=== PATIENT | male | born 1985 | race American Indian/Alaskan Native ===

== ENCOUNTER 2017-11-07 07:09 | Emergency (ER) | payer MEDICAID, OTHER ==
[2017-11-07 07:47] VITALS: RESP 18; TEMP 98.9
--- NOTE | 2017-11-07 08:02 | ED PDOC ---
Arrival/HPI - General Chief Complaint: Flu-like Symptoms Time Seen by Provider: 11/07/17 07:47 Historian: Patient - History of Present Illness Narrative History of Present Illness (Text): 11/07/17 07:50 Celeste Cruz is a 32 year old male, who presents to the emergency department complaining of chills and body aches since early this morning. Patient reports having a cough and sore throat and notes one week ago having a fever that resolved. Patient denies chest pain, shortness of breath, headache, vomiting, diarrhea, abdominal pain, dizziness or other complaints. PMD: Dr. Saul Time/Duration: Prior to Arrival Symptom Onset: Sudden Symptom Course: Unchanged Activities at Onset: Rest Context: Home Past Medical History - Provider Review Nursing Documentation Reviewed: Yes - Infectious Disease Hx of Infectious Diseases: None - Psychiatric Hx Bipolar Disorder: No Hx Substance Use: No Family/Social History - Physician Review Nursing Documentation Reviewed: Yes Family/Social History: Unknown Family HX Smoking Status: Unknown If Ever Smoked Hx Alcohol Use: Yes Frequency of alcohol use: Socially Hx Substance Use: No Allergies/Home Meds Allergies/Adverse Reactions: Allergies No Known Allergies Allergy (Verified 11/07/17 07:47) Review of Systems - Physician Review All systems were reviewed & negative as marked: Yes - Review of Systems Constitutional: Fevers (resolved), Other (chills) ENT: Sore Throat Respiratory: Cough. absent: SOB Cardiovascular: absent: Chest Pain Gastrointestinal: absent: Abdominal Pain Musculoskeletal: Myalgias Physical Exam Vital Signs Reviewed: Yes Vital Signs Temp Pulse Resp BP Pulse Ox 11/07/17 07:43 98.9 F 102 H 18 144/77 97 Temperature: Afebrile Blood Pressure: Normal Pulse: Tachycardic Respiratory Rate: Normal Appearance: Positive for: Well-Appearing, Non-Toxic, Comfortable Pain Distress: None Mental Status: Positive for: Alert and Oriented X 3 - Systems Exam Head: Present: Atraumatic, Normocephalic Pupils: Present: PERRL Extroacular Muscles: Present: EOMI Conjunctiva: Present: Normal Ears: Present: Normal, NORMAL TM, Normal Canal. No: Erythema, TM Bulging Mouth: Present: Moist Mucous Membranes Pharnyx: Present: ERYTHEMA. No: EXUDATE, TONSILS ENLARGED Neck: Present: Normal Range of Motion Respiratory/Chest: Present: Clear to Auscultation, Good Air Exchange. No: Respiratory Distress, Accessory Muscle Use, Wheezes, Rales, Retracting, Rhonchi Cardiovascular: Present: Regular Rate and Rhythm, Normal S1, S2. No: Murmurs Abdomen: Present: Normal Bowel Sounds. No: Tenderness, Distention, Peritoneal Signs, Rebound, Guarding Neurological: Present: GCS=15, CN II-XII Intact, Speech Normal Skin: Present: Warm, Dry, Normal Color. No: Rashes Psychiatric: Present: Alert, Oriented x 3, Normal Insight, Normal Concentration Medical Decision Making ED Course and Treatment: 11/07/17 Impression: 32 year old male with erythema in pharynx and no exudate complaining of sore throat, cough, and chills since [employer]. Plan: -- Chest X-ray -- Tylenol -- Labs -- Reassess and disposition Progress Notes: 11/07/17 09:00 Chest X-ray: Creator : Fausto Grossman MD FINDINGS: LUNGS: No active pulmonary disease. PLEURA: No significant pleural effusion identified. No pneumothorax apparent. CARDIOVASCULAR: Normal. OSSEOUS STRUCTURES: No significant abnormalities. VISUALIZED UPPER ABDOMEN: Normal. OTHER FINDINGS: None. IMPRESSION: No active disease. - Lab Interpretations Lab Results: Lab Results 11/07/17 08:13: Influenza Typ A,B (EIA) Negative for flu a/b, Grp A Beta Strep Ag Negative I have reviewed the lab results: Yes - RAD Interpretation Radiology Orders: 11/07/17 07:58 CHEST TWO VIEWS (PA/LAT) [RAD] Stat Tray Checker: Radiologist - Medication Orders Current Medication Orders: Discontinued Medications Acetaminophen (Tylenol 325mg Tab) 975 mg PO STAT STA Stop: 11/07/17 07:59 Last Admin: 11/07/17 08:13 Dose: 975 mg - Scribe Statement The provider has reviewed the documentation as recorded by the Ralph Archer Provider Scribe Attestation: All medical record entries made by the Scribe were at my direction and personally dictated by me. I have reviewed the chart and agree that the record accurately reflects my personal performance of the history, physical exam, medical decision making, and the department course for this patient. I have also personally directed, reviewed, and agree with the discharge instructions and disposition. Disposition/Present on Arrival - Present on Arrival Any Indicators Present on Arrival: No History of DVT/PE: No History of Uncontrolled Diabetes: No Urinary Catheter: No History of Decub. Ulcer: No History Surgical Site Infection Following: None - Disposition Have Diagnosis and Disposition been Completed?: Yes Diagnosis: Viral syndrome, Influenza-like illness Disposition: HOME/ ROUTINE Disposition Time: 08:00 Condition: STABLE Discharge Instructions (ExitCare): Viral Syndrome (ED) Additional Instructions: follow up with your doctor. return to er with worsening symptoms or concerns. Prescriptions: Oseltamivir Phosphate [Tamiflu] 75 mg PO BID #10 capsule Referrals: Nelly Saul MD [Primary Care Provider] - Follow up with primary Forms: [employer] (Khmer)
--- NOTE | 2017-11-07 08:48 | RAD ---
HISTORY: cough COMPARISON: No prior. TECHNIQUE: Chest PA and lateral FINDINGS: LUNGS: No active pulmonary disease. PLEURA: No significant pleural effusion identified. No pneumothorax apparent. CARDIOVASCULAR: Normal. OSSEOUS STRUCTURES: No significant abnormalities. VISUALIZED UPPER ABDOMEN: Normal. OTHER FINDINGS: None. IMPRESSION: No active disease.
[2017-11-07 09:00] LABS: INFLUENZA A B NEGATIVE FOR FLU A/B (NEGATIVE)
[2017-11-07 14:30] VITALS: BP 138/62; PULSE 98; O2SAT 100
== END 2017-11-07 09:20 | disposition home or self-care (01) ==
LOC: MERGE 07:09 → ED 07:09
DX: J11.1 Influenza due to unidentified influenza virus with other respiratory manifestations (principal); B34.9 Viral infection, unspecified

== ENCOUNTER 2018-04-17 21:27 | Emergency (ER) | payer SELFPAY ==
--- NOTE | 2018-04-17 22:45 | ED PDOC ---
Arrival/HPI <Elmo Contreras - Last Filed: 04/18/18 00:16> - General Historian: Patient EM Caveat: Acuity of Condition - History of Present Illness Time/Duration: 24 hours Symptom Onset: Sudden Symptom Course: Intermittent, [place] Quality: Aching, Stabbing Severity Level: 5 Activities at Onset: Rest Context: Home <Marita Sandoval - Last Filed: 04/18/18 02:11> - General Chief Complaint: Abdominal Pain Time Seen by Provider: 04/17/18 21:44 - History of Present Illness Narrative History of Present Illness (Text): 04/17/18 22:41 Pt is a 33 yr old male who presents to the ED complaining of LLQ pain described as sharp and sudden x 1 day. Pt reports that pain is intermittent, non radiating and not associated with any activity. Also complains of non-radiating dull right upper shoulder pain x1 day. Pt say he has never had this pain before but admits that he has dysuria and frequency of voiding lately. Denies fever, chills, nausea, vomting, diarrhea, penile discharge, change in bladder or bowel, recent travel, unprotected sexual intercourse, or any other complaints (Marita Sandoval) Past Medical History - Provider Review Nursing Documentation Reviewed: Yes - Travel History Have you recently traveled outside [place] w/in the past 3 mons?: No - Infectious Disease Hx of Infectious Diseases: None - Psychiatric Hx Bipolar Disorder: No Hx Substance Use: No <Marita Sandoval - Last Filed: 04/18/18 02:11> Family/Social History - Physician Review Nursing Documentation Reviewed: Yes Family/Social History: Unknown Family HX Smoking Status: Unknown If Ever Smoked Hx Alcohol Use: Yes Hx Substance Use: No <Marita Sandoval - Last Filed: 04/18/18 02:11> Allergies/Home Meds <Elmo Contreras - Last Filed: 04/18/18 00:16> <Marita Sandoval - Last Filed: 04/18/18 02:11> Allergies/Adverse Reactions: Allergies No Known Allergies Allergy (Verified 11/07/17 07:47) Review of Systems - Review of Systems Constitutional: Normal. absent: Fatigue, Fevers Eyes: Normal ENT: Normal Respiratory: Normal. absent: SOB Cardiovascular: Normal. absent: Chest Pain Gastrointestinal: Normal, Abdominal Pain. absent: Stool Changes, Constipation, Diarrhea, Nausea, Vomiting, Appetite Changes Genitourinary Male: Dysuria, Frequency, Urinary Output Changes. absent: Hematuria Musculoskeletal: Normal, Back Pain. absent: Arthralgias, Neck Pain, Joint Swelling, Myalgias Skin: Normal Neurological: Normal. absent: Headache, Dizziness Endocrine: Normal Hemo/Lymphatic: Normal Psychiatric: Normal <Marita Sandoval - Last Filed: 04/18/18 02:11> Physical Exam Vital Signs Reviewed: Yes Temperature: Afebrile Blood Pressure: Normal Pulse: Tachycardic Respiratory Rate: Normal Appearance: Positive for: Well-Appearing, Non-Toxic, Comfortable Pain Distress: None Mental Status: Positive for: Alert and Oriented X 3 - Systems Exam Head: Present: Atraumatic, Normocephalic Pupils: Present: PERRL Extroacular Muscles: Present: EOMI Conjunctiva: Present: Normal Mouth: Present: Moist Mucous Membranes Neck: Present: Normal Range of Motion Respiratory/Chest: Present: Clear to Auscultation, Good Air Exchange. No: Respiratory Distress, Accessory Muscle Use Cardiovascular: Present: Regular Rate and Rhythm, Normal S1, S2. No: Murmurs Abdomen: Present: Normal Bowel Sounds. No: Tenderness, Distention, Peritoneal Signs, Rebound, Guarding, McBurney's Point Tender, Rovsing's Sign Present, Hernias Back: Present: Normal Inspection. No: CVA Tenderness Upper Extremity: Present: Normal Inspection, Capillary Refill < 2s. No: Cyanosis, Edema Lower Extremity: Present: Normal Inspection. No: Edema Neurological: Present: GCS=15, CN II-XII Intact, Speech Normal, Motor Func Grossly Intact, Normal Sensory Function Skin: Present: Warm, Dry, Normal Color. No: Rashes Psychiatric: Present: Alert, Oriented x 3, Normal Insight, Normal Concentration <Marita Sandoval - Last Filed: 04/18/18 02:11> Vital Signs Temp Pulse Resp BP Pulse Ox 04/17/18 23:37 98.2 F 93 H 16 133/79 98 04/17/18 21:45 98.5 F 103 H 18 130/81 100 Medical Decision Making <Elmo Contreras - Last Filed: 04/18/18 00:16> <Marita Sandoval - Last Filed: 04/18/18 02:11> ED Course and Treatment: 04/17/18 22:45 Impression Pt is a 33 yr old male who presents to the ED complaining of LLQ pain described as sharp and sudden x 1 day. NO symptroms on exam; no tenderness to the right or left LQ, Plan UA GC and chlamydia assess and dispo Progress Note UA negative for infection pt not in any pain but states he gets a sharp pain in the LLQ at times Abdominal CT w/ contrast ordered to r/o renal stone 04/18/18 02:03 IMPRESSION: 1. No stones in either kidney or ureter and no hydronephrosis. 2. 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 (Marita Sandoval) - Lab Interpretations Lab Results: Lab Results 04/17/18 23:00: Urine Color Yellow, Urine Appearance Clear, Urine pH 6.0, Ur Specific [place] >= 1.030, Urine Protein Trace H, Urine Glucose (UA) Negative, Urine Ketones Negative, Urine Blood Negative, Urine Nitrate Negative, Urine Bilirubin Negative, Urine Urobilinogen 0.2, Ur Leukocyte Esterase Negative, Urine RBC 0 - 2, Urine WBC 1 - 3, Ur Epithelial Cells 0 - 2, Urine Bacteria Few - RAD Interpretation Radiology Orders: 04/17/18 23:58 ABDOMEN & PELVIS [ABD & PELVIS W/O PO OR IV CONT] [CT] Stat - PA / HOUSE WIRER HELPER / Resident Statement MD/DO has reviewed & agrees with the documentation as recorded. <Elmo Contreras - Last Filed: 04/18/18 00:16> Disposition/Present on Arrival <Elmo Contreras - Last Filed: 04/18/18 00:16> - Present on Arrival Any Indicators Present on Arrival: Yes History of DVT/PE: No History of Uncontrolled Diabetes: No Urinary Catheter: No History of Decub. Ulcer: No History Surgical Site Infection Following: None - Disposition Have Diagnosis and Disposition been Completed?: Yes Disposition Time: 01:28 Patient Plan: Discharge <Marita Sandoval - Last Filed: 04/18/18 02:11> - Disposition Diagnosis: Unspecified abdominal pain Disposition: HOME/ ROUTINE Patient Problems: Current Active Problems Problem Status Onset Unspecified abdominal pain Acute Condition: STABLE Discharge Instructions (ExitCare): Flank Pain (DC) Additional Instructions: JORGE LUIS PADILLA, thank you for letting us take care of you today. Your provider was Elmo Contreras MD and MYNOR Sandoval and you were treated for Left Lower Abdominal Pain. The emergency medical care you received today was directed at your acute symptoms. If you were prescribed any medication, please fill it and take as directed. It may take several days for your symptoms to resolve. Return to the Emergency Department if your symptoms worsen, do not improve, or if you have any other problems. IF YOU CONTINUE TO HAVE SHARP ABDOMINAL PAIN ALONG WITH FEVER, NAUSEA, VOMITING AND DIARRHEA, RETURN TO THE EMERGENCY DEPARTMENT FOR FURTHER EVALUATION. SEE YOUR PRIMARY CARE DOCTOR IN 2 DAYS Please contact your doctor or call one of the physicians/clinics you have been referred to that are listed on the Patient Visit Information form that is included in your discharge packet. Bring any paperwork you were given at discharge with you along with any medications you are taking to your follow up visit. Our treatment cannot replace ongoing medical care by a primary care provider outside of the emergency department. Thank you for allowing the [facility] team to be part of your care today. If you had an X-Ray or CT scan: A Radiologist will review the ED reading if any change in treatment is needed we will contact you. If you had a blood, urine, or wound culture: It will take several days for the results, if any change in treatment is needed we will contact you. If you had an STI test: It will take 48 hours for the results. Please call after 1 week if you have not heard back. Prescriptions: Ibuprofen [Motrin Tab] 400 mg PO Q6 #20 tab Referrals: Nelly Saul MD [Primary Care Provider] - Follow up with primary Forms: [employer] ([place] African)
[2018-04-17 23:38] VITALS: RESP 16; O2SAT 98
[2018-04-17 23:46] LABS: URINE BILIRUBIN NEGATIVE (NEGATIVE); URINE BLOOD NEGATIVE (NEGATIVE); URINE GLUCOSE (UA) NEGATIVE (NEGATIVE); URINE LEUKOCYTE ESTERASE NEGATIVE Leu/uL (NEGATIVE); URINE PROTEIN TRACE mg/dL (<30 mg/dL); URINE UROBILINOGEN 0.2 E.U./dL (<1 E.U./dL)
[2018-04-17 23:54] LABS: URINE APPEARANCE CLEAR (CLEAR); URINE COLOR YELLOW (YELLOW)
[2018-04-17 23:59] LABS: URINE BACTERIA FEW (NEG); URINE EPITHELIAL CELLS 0 - 2 /hpf (0-5); URINE RBC 0 - 2 /hpf (0-2)
[2018-04-18 05:20] VITALS: BP 135/75; PULSE 88; TEMP 98.7
--- NOTE | 2018-04-18 10:34 | CT ---
Date of service: 04/18/2018 PROCEDURE: CT Abdomen and Pelvis without intravenous contrast HISTORY: Left Flank Pain COMPARISON: None. TECHNIQUE: Without contrast. Contrast dose: Radiation dose: Total exam DLP = 1174 mGy-cm. This CT exam was performed using one or more of the following dose reduction techniques: Automated exposure control, adjustment of the mA and/or kV according to patient size, and/or use of iterative reconstruction technique. FINDINGS: LOWER THORAX: Unremarkable. LIVER: Unremarkable. No gross lesion or ductal dilatation. GALLBLADDER AND BILE DUCTS: Unremarkable. PANCREAS: Unremarkable. No gross lesion or ductal dilatation. SPLEEN: There is a calcified cyst in the spleen measuring 5.8 cm in diameter. ADRENALS: Unremarkable. No mass. KIDNEYS AND URETERS: Unremarkable. No hydronephrosis. No solid mass. VASCULATURE: Unremarkable. No aortic aneurysm. BOWEL: Unremarkable. No obstruction. No gross mural thickening. APPENDIX: Unremarkable. Normal appendix. PERITONEUM: Unremarkable. No free fluid. No free air. LYMPH NODES: Unremarkable. No enlarged lymph nodes. BLADDER: Unremarkable. REPRODUCTIVE: Unremarkable. BONES: No acute fracture. OTHER FINDINGS: The report concurs with the preliminary [facility] report IMPRESSION: No acute intra-abdominal findings. No evidence of urolithiasis
== END 2018-04-18 01:00 | disposition home or self-care (01) ==
LOC: ED 21:27
DX: R10.32 Left lower quadrant pain (principal)

== ENCOUNTER 2018-10-03 04:02 | Emergency (ER) | payer SELFPAY ==
[2018-10-03 04:11] VITALS: BMI 41.1
[2018-10-03 04:25] VITALS: RESP 18; TEMP 98.4
--- NOTE | 2018-10-03 04:28 | ED PDOC ---
Arrival/HPI - History of Present Illness Narrative History of Present Illness (Text): Patient is a 33 yr old male with no PMH and no PSH who presents to [facility] Emergency department with complaints of left lower leg swelling and upper to mid back pain. Patient states that he has been having episodes like this intermittently since May which can sometimes involve his arms as well. 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 Patient otherwise denies TOMPKINS, dizziness, shortness of breath, chest pain, abdominal pain, n/v, f/v, dysuria,stool changes, gait instability or difficulty walking, and extremity weakness/pain. 10/03/18 04:24 Time/Duration: Prior to Arrival, 1-3 hours Symptom Onset: Gradual Symptom Course: Intermittent Quality: Fullness (feels as though limbs are swollen) <Kimberly Jorgensen - Last Filed: 10/03/18 05:24> <Elmo Contreras - Last Filed: 10/03/18 20:39> - General Chief Complaint: Lower Extremity Problem/Injury Time Seen by Provider: 10/03/18 04:11 Past Medical History - Provider Review Nursing Documentation Reviewed: Yes - Past History Past History: No Previous - Infectious Disease Hx of Infectious Diseases: None - Pulmonary Hx Respiratory Disorders: Yes Hx Bronchitis: Yes - Psychiatric Hx Bipolar Disorder: No Hx Substance Use: No <Kimberly Jorgensen - Last Filed: 10/03/18 05:24> Family/Social History - Physician Review Nursing Documentation Reviewed: Yes Family/Social History: Unknown Family HX Smoking Status: Never Smoked Hx Alcohol Use: Yes Frequency of alcohol use: Socially Hx Substance Use: No <Kimberly Jorgensen - Last Filed: 10/03/18 05:24> Allergies/Home Meds <Kimberly Jorgensen - Last Filed: 10/03/18 05:24> <Elmo Contreras - Last Filed: 10/03/18 20:39> Allergies/Adverse Reactions: Allergies No Known Allergies Allergy (Verified 11/07/17 07:47) Review of Systems - Physician Review All systems were reviewed & negative as marked: Yes - Review of Systems Constitutional: absent: Fatigue Eyes: absent: Vision Changes ENT: absent: Hearing Changes Respiratory: absent: SOB, Cough Cardiovascular: absent: Chest Pain Gastrointestinal: absent: Abdominal Pain Musculoskeletal: Back Pain Neurological: absent: Headache, Dizziness, Focal Weakness, Gait Changes, Speech Changes, Facial Droop Endocrine: absent: Diaphoresis <Kimberly Jorgensen - Last Filed: 10/03/18 05:24> Physical Exam Temperature: Afebrile Blood Pressure: Hypertensive (152/88) Pulse: Tachycardic (92) Respiratory Rate: Normal Appearance: Positive for: Well-Appearing, Non-Toxic, Comfortable Pain Distress: Mild Mental Status: Positive for: Alert and Oriented X 3 - Systems Exam Head: Present: Atraumatic, Normocephalic Extroacular Muscles: Present: EOMI Mouth: Present: Moist Mucous Membranes Neck: Present: Normal Range of Motion. No: Meningeal Signs, MIDLINE TENDERNESS, Paraspinal Tenderness Respiratory/Chest: Present: Clear to Auscultation, Good Air Exchange. No: Respiratory Distress, Accessory Muscle Use, Wheezes, Rales, Rhonchi Cardiovascular: Present: Regular Rate and Rhythm, Normal S1, S2. No: Murmurs Abdomen: No: Tenderness, Distention, Peritoneal Signs, Rebound, Guarding Back: Present: Normal Inspection. No: Midline Tenderness, Paraspinal Tenderness Upper Extremity: Present: Normal Inspection, NORMAL PULSES. No: Cyanosis, Edema, Tenderness, Swelling, Erythema Lower Extremity: Present: Normal Inspection, CALF TENDERNESS (left), NORMAL PULSES. No: Edema, Swelling Neurological: Present: GCS=15, CN II-XII Intact, Speech Normal Skin: Present: Warm, Dry, Normal Color Psychiatric: Present: Alert, Oriented x 3, Normal Insight, Normal Concentration <Kimberly Jorgensen - Last Filed: 10/03/18 05:24> Vital Signs Temp Pulse Resp BP Pulse Ox 10/03/18 04:25 98.4 F 92 H 18 152/88 H 99 <Elmo Contreras - Last Filed: 10/03/18 20:39> Medical Decision Making ED Course and Treatment: Impression: 33 yr old male with complaining of swelling in his arms and legs which has now resolved, additionally complaining of mid thoracic back pain Plan Duplex US of LE bilaterally Thoracic XR reassess and disposition 10/03/18 04:33 Bilateral LE US negative for DVT 10/03/18 05:04 Thoracic XR negative per Dr. Contreras ER physician plan to give motrin and flexeril recommend light duty no further heavy lifting for at least 3-5 days. 10/03/18 05:25 - RAD Interpretation Narrative RAD Interpretations (Text): LE US negative for DVT bilaterally 10/03/18 05:24 Radiology Orders: 10/03/18 04:22 THORACIC SPINE [DORSAL (THORACIC) SPINE] [RAD] Stat 10/03/18 04:23 DUPLEX LOWER EXTRM VEIN BILAT [US] Stat <Kimberly Jorgesnen - Last Filed: 10/03/18 05:24> ED Course and Treatment: Impression: Pt seen and evaluated with resident. Aware and agree with HPI, clinical findings, plan, and management. Pt presented to emergency department for left lower leg swelling. Plan: -- XR Thoracic Spine -- US Duplex Lower Extremities -- Reassess and disposition - RAD Interpretation Radiology Orders: 10/03/18 04:22 THORACIC SPINE [DORSAL (THORACIC) SPINE] [RAD] Stat 10/03/18 04:23 DUPLEX LOWER EXTRM VEIN BILAT [US] Stat <Elmo Contreras - Last Filed: 10/03/18 20:39> - PA / SPECTRAL SCIENTIST / Resident Statement / has reviewed & agrees with the documentation as recorded. / has examined the patient and agrees with the treatment plan. <Elmo Contreras - Last Filed: 10/03/18 20:39> Disposition/Present on Arrival - Present on Arrival Any Indicators Present on Arrival: No History of DVT/PE: No History of Uncontrolled Diabetes: No Urinary Catheter: No History of Decub. Ulcer: No History Surgical Site Infection Following: None - Disposition Have Diagnosis and Disposition been Completed?: Yes Disposition Time: 05:27 Patient Plan: Discharge <Kimberly Jorgensen - Last Filed: 10/03/18 05:24> <Elmo Contreras - Last Filed: 10/03/18 20:39> - Disposition Diagnosis: Muscle strain Disposition: HOME/ ROUTINE Condition: GOOD Discharge Instructions (ExitCare): Muscle Strain (DC) Additional Instructions: Upon discharge you will be given prescriptions for the following medications Motrin 600 mg by mouth every 8 hours as needed for pain Flexeril 10 mg by mouth three times daily as needed for muscle tension Please do not engage in any strenuous activity or heavy lifting as this may exacerbate your symptoms You will need to establish care/ follow up with a primary care physician within 3-5 days of discharge. If your symptoms return or worsen please return to the nearest Emergency de partment for evlauation. Prescriptions: Cyclobenzaprine [Cyclobenzaprine HCl] 10 mg PO TID PRN #15 tab PRN Reason: Muscle Spasm Ibuprofen [Motrin] 600 mg PO Q8 PRN #15 tab PRN Reason: Pain, Moderate (4-7) Forms: [employer] ([place]de[place])
[2018-10-03 05:44] VITALS: BP 124/67; PULSE 90; O2SAT 100
--- NOTE | 2018-10-03 10:41 | RAD ---
Date of service: 10/03/2018 HISTORY: back pain COMPARISON: Chest x-ray performed 11/07/17 FINDINGS: Examination limited by habitus. BONES: Alignment maintained. No acute displaced fracture identified. Mild degenerative changes including small osteophyte formation. DISC SPACES: Unremarkable. SOFT TISSUES: Unremarkable. OTHER FINDINGS: None. IMPRESSION: No acute displaced fracture or subluxation identified.
--- NOTE | 2018-10-03 20:23 | US ---
HISTORY: Leg pain and swelling. Evaluate for DVT PHYSICIAN(S): Fausto Sepulveda MD. TECHNIQUE: Duplex sonography and color-flow Doppler with graded compression were used to evaluate the deep venous systems of both lower extremities. The exam is limited by body habitus and edema. The tibial veins are not well seen FINDINGS: The visualized deep venous systems of both lower extremities are sonographically normal and compressible. Normal wave forms and augmentation are seen. There is no sonographic evidence for deep venous thrombosis in the visualized segments of both lower extremities. IMPRESSION: No sonographic evidence for deep venous thrombosis in the visualized segments of both lower extremities. Limited exam.
== END 2018-10-03 06:01 | disposition home or self-care (01) ==
LOC: ED 04:02
DX: S86.919A Strain of unspecified muscle(s) and tendon(s) at lower leg level, unspecified leg, initial encounter (principal); X58.XXXA Exposure to other specified factors, initial encounter